=== PATIENT | female | born 1945 | race Caucasian/White ===

== ENCOUNTER → 2017-01-25 | Outpatient (CLI) | payer OTHER ==
[~2017-01-25] MED LIST: CRESTOR5 MG PO; HYDROCODONE-AP1 EAC6 PO; IBUPROFEN 600600 M1 PO
== END ==
LOC: RAD 01:36
DX: Z12.31 Encounter for screening mammogram for malignant neoplasm of breast (principal)

== ENCOUNTER 2018-10-20 18:19 | Emergency (ER) | payer OTHER ==
[~2018-10-20] VITALS: Ht 160 cm; Wt 78.9 kg
[2018-10-20 18:48] LABS: HEMATOCRIT 42.7 % (37.0-47.0); HEMOGLOBIN 14.4 gm/dL (12.0-15.0); LYMPHOCYTES 36.5 % (24.0-44.0); MCHC 33.7 g/dL (28.0-37.0); MCV 88.8 fL (80.0-100.0); PLATELET COUNT 210 thou/uL (150-400); POLYS 50.5 % (36.0-66.0); RBC 4.81 mil/uL (4.20-5.00); RDW 13.6 % (10.5-14.5); WBC 7.8 thou/uL (4.0-11.0)
[2018-10-20 18:50] LABS: URINE BILIRUBIN NEGATIVE (Negative); URINE BLOOD TRACE (Negative); URINE CLARITY CLEAR; URINE COLOR YELLOW; URINE GLUCOSE-RANDOM* NEGATIVE (Negative); URINE KETONES NEGATIVE (Negative); URINE LEUKOCYTES-REFLEX TRACE (Negative); URINE NITRITE-REFLEX NEGATIVE (Negative); URINE PROTEIN (DIPSTICK) NEGATIVE (Negative); URINE SPECIFIC GRAVITY <= 1.005 (1.005-1.035); URINE UROBILINOGEN 0.2 E.U./dl (0.2-1.0)
[2018-10-20 18:56] LABS: ANION GAP 9 mmol/L (7-16); BUN 15 mg/dL (7-18); CALCIUM 9.5 mg/dL (8.5-10.1); CHLORIDE 103 mmol/L (98-107); CO2 26 mmol/L (21-32); CREATININE 0.7 mg/dL (0.6-1.0); GLUCOSE 90 mg/dL (74-106); POTASSIUM 3.8 mmol/L (3.5-5.1); SODIUM 138 mmol/L (136-145)
[2018-10-20 19:04] LABS: TROPONIN-I <0.06 ng/mL (<0.06)
[2018-10-20 20:08] VITALS: BP 164/77
--- NOTE | 2018-10-21 09:33 | EKG ---
[address] [place] [address] ELECTROCARDIOGRAM REPORT Name: AXELCARLOS DELIA [facility] [id number] ������������������ Admission: 10/20/18 ������������������ Attend Phys: Discharge: 10/20/18 ������������������ Date of : 45 Report #: [id number] ����������������������������������������������������������������� [id number] THIS REPORT FOR: //name// [facility] ED Test Date: 2018-10-20 Test Time: 18:52:55 Pat Name: CARLOS REYNA Department: Room: Gender: F Valet: CLINT : 1945 Requested By: Gavino Cruz Order Number: [id number] MD: Alfonso Amaya Measurements Intervals [place] Rate: 56 P: 43 MO: 155 QRS: 32 QRSD: 92 T: 41 QT: 450 QTc: 435 Interpretive Statements Sinus rhythm Probable left atrial enlargement Compared to ECG 03/30/2015 07:40:00 Sinus bradycardia no longer present Electronically Signed On 10-21-2018 9:33:44 CDT by Alfonso Amaya [email or web address] ��������������������������������������������� <ELECTRONICALLY SIGNED> ���������������������������������������� By: Alfonso Amaya MD ��������������������������������������������� 10/21/18 0933 [id number] Alfonso Amaya MD /BRAXTON
== END 2018-10-20 20:09 | disposition home or self-care (01) ==
LOC: ER 18:19
PROVIDERS: Emergency Medicine
DX: R42 Dizziness and giddiness (principal); E78.00 Pure hypercholesterolemia, unspecified; E78.5 Hyperlipidemia, unspecified; E11.9 Type 2 diabetes mellitus without complications; G47.30 Sleep apnea, unspecified; Z96.653 Presence of artificial knee joint, bilateral

== ENCOUNTER → 2019-02-27 | Outpatient (CLI) | payer OTHER ==
[~2019-02-27] MED LIST changes: +AMOXICILLIN 50500 MG PO; +ASPIR 8181 MG PO; +CALCIUM 600 +1 EAC1 PO; +COZAAR 50 MG TA50 MG PO; +CRANBERRY PLUS1 EACH PO; +DETROL LA4 MG PO; +GARLIC1000 MG PO; +GINGER250 MG PO; +OIL OF OREGAN1500 MG PO; +TROSPIUM CHLORI60 MG PO; +[UNRECOGNIZED DRUG - OTHER] PO
== END ==
LOC: RAD 15:26
DX: Z12.31 Encounter for screening mammogram for malignant neoplasm of breast (principal)

== ENCOUNTER → 2019-02-27 | Outpatient (CLI) | payer OTHER ==
[~2019-02-27] VITALS: Ht 160 cm; Wt 83.9 kg
[2019-02-27 14:02] VITALS: BP 158/83
--- NOTE | 2019-02-27 14:37 | NUR ---
Pain Clinic Assessment: 1. History of Osteoarthritis: BLE AND BACK History of Rheumatoid Arthritis: Not Applicable 2. Height: 5 ft. 3 in. 160.0 cm. Weight: 185.0 lb. oz. 83.916 kg. Patient's BMI: 32.8 3. Vital Signs: BP: 158/83 Pulse: 64 Resp: 16 Temp: 02 Sat: 100 ECG Mon: 4. Pain Intensity: 6 5. Fall Risk: Dizziness: N Needs help standing or walking: N Fallen in the last 3 months: N Fall risk comments: 6. Patient on Blood Thinner: None 7. History of Hypertension: Y 8. Opioid Therapy greater than 6 weeks: N Opiate Contract Signed: 9. Risk Assessment Tool Provided: 10. Functional Assessment Tool: 11. Recreational Drug Use: Never Drug Type: Tobacco Use: Never Smoker Tobacco Type: Amount or Packs/day: How Many Years: Alcohol Use: No Frequency: Quant:
--- NOTE | 2019-03-06 16:52 | HPC ---
[facility] [address] [place] [address] PAIN MANAGEMENT CONSULTATION Name: CARLOS REYNA Room #: REG CL MIrma.#: [id number] Admission: 02/27/19 Attend Phys: Damon Gaffney MD Discharge: Date of : 45 Report #: [id number] THIS REPORT FOR: //name// CC: Jigna Gaffney DATE OF SERVICE: 02/27/2019 CHIEF COMPLAINT: Low back pain with radiation in the left leg in the L5 distribution. This is a very pleasant 74-year-old female who I last saw over 18 years ago. She received a series of epidural steroid injections. She ultimately went on to have surgery. I performed additional injections for her 2-3 years after surgery and she has had no need for me since. Beginning in October of this year after moving a desk, she began experiencing radicular symptoms into the left hip. Riding in a car for any amount of time worsens her pain dramatically and she has a trip upcoming in the next 10 days. She has asked for an epidural injection to provide symptomatic relief. She describes her pain as constant, shooting, aching 6-8/10. She just recently had a flu shot. We have recommended that she wait until Sunday to have her epidural injection per our office protocol and recommendations. MEDICATIONS: Roberta root, oregano oil, garlic, cranberry, calcium, aspirin, trospium chloride, losartan, tolterodine, ibuprofen 600 mg, hydrocodone, . ALLERGIES: None listed. PAST MEDICAL HISTORY: Positive for cardiac ablation, cardiac catheterization, appendectomy, lumbar laminectomy, vaginal hysterectomy, and multiple eye surgeries. SOCIAL HISTORY: She is retired. Denies use of tobacco and alcohol. Does not use illegal drugs. She is single, . REVIEW OF SYSTEMS: Completed by the patient. Positive for blurred vision. She had a head injury in 1947. She complains of numbness and tingling into the left leg, frequent urination, nocturia. PHYSICAL EXAMINATION: GENERAL: Pleasant female, 5 feet 3 inches, 185 pounds, BMI of 32.8. VITAL SIGNS: Blood pressure is 158/83, heart rate 64, respirations 16, pain intensity 6/10. She moves independently from sitting to standing, walks without [facility] [address] [place] [address] PAIN MANAGEMENT CONSULTATION Name: CARLOS REYNA Room #: REG [facility].#: [id number] Admission: 02/27/19 Attend Phys: Damon Gaffney MD Discharge: Date of : 45 Report #: [id number] antalgic features to her gait. CHEST: Clear to auscultation. CARDIAC: Rhythm is regular. ABDOMEN: Soft. MUSCULOSKELETAL: Examination of the spine reveals a scar, which was nontender. She has some mild tenderness in the left paramedian region radiating into the left hip. Straight leg raising reproduces symptoms of radiculopathy in the L5-S1 distribution. IMPRESSION: Lumbar radiculopathy likely related to degenerative disk disease, post-laminectomy syndrome. RECOMMENDATIONS: I have recommended epidural injection and will bring her back on Sunday to do that. We will consider transforaminal approach given her previous surgery. Followup visit planned on Sunday. <ELECTRONICALLY SIGNED> By: Damon Gaffney MD 03/06/19 1652 [id number] Damon Gaffney MD /nt
== END ==
LOC: PAIN 06:59
DX: M54.16 Radiculopathy, lumbar region (principal); M96.1 Postlaminectomy syndrome, not elsewhere classified; Z88.8 Allergy status to other drugs, medicaments and biological substances; Z79.899 Other long term (current) drug therapy

== ENCOUNTER → 2019-03-03 | Outpatient (CLI) | payer OTHER ==
[~2019-03-03] VITALS: Ht 160 cm; Wt 87.5 kg
[2019-03-03 08:51] VITALS: BP 185/88
--- NOTE | 2019-03-03 08:57 | NUR ---
Pain Clinic Assessment: 1. History of Osteoarthritis: SPINEE Right Lower Extremity Left Lower Extremity History of Rheumatoid Arthritis: Not Applicable 2. Height: 5 ft. 3 in. 160.0 cm. Weight: 193.0 lb. oz. 87.544 kg. Patient's BMI: 34.2 3. Vital Signs: BP: 185/88 Pulse: 65 Resp: 16 Temp: 02 Sat: 97 ECG Mon: 4. Pain Intensity: 5 5. Fall Risk: Dizziness: N Needs help standing or walking: N Fallen in the last 3 months: N Fall risk comments: 6. Patient on Blood Thinner: None 7. History of Hypertension: Y 8. Opioid Therapy greater than 6 weeks: N Opiate Contract Signed: 9. Risk Assessment Tool Provided: MOD-5 10. Functional Assessment Tool: 11. Recreational Drug Use: Never Drug Type: Tobacco Use: Never Smoker Tobacco Type: Amount or Packs/day: How Many Years: Alcohol Use: No Frequency: Quant:
--- NOTE | 2019-03-06 16:52 | HPC ---
[address] [address] PAIN MANAGEMENT CONSULTATION Name: CARLOS REYNA DELIA Room #: REG CL Jonel.#: [id number] Admission: 03/03/19 Attend Phys: Damon Gaffney MD Discharge: Date of : 45 Report #: [id number] THIS REPORT FOR: //name// CC: PARMINDER Gaffney DATE OF SERVICE: 03/03/2019 REASON FOR VISIT: Followup visit for lumbar epidural steroid injection. SUBJECTIVE: The patient was seen as a new patient consultation on 02/27/2019. We were unable to provide her injection on that date. Preauthorization has been received to go forward with her injection. I reviewed our visit from just 4 days ago and there have been no significant changes. Procedure was explained to her including risks and benefits and she is anxious to proceed today. IMPRESSION: 1. Lumbar radiculopathy, post-laminectomy syndrome. 2. Degenerative disk disease. 3. Pain in the L5-S1 distribution. PROCEDURE: L5-S1 transforaminal epidural injection under fluoroscopic guidance. DESCRIPTION OF PROCEDURE: She was taken to fluoroscopic suite for treatment where she was placed prone, skin prepped with ChloraPrep. Skin was anesthetized over the L5-S1 neural foramen. Using triplanar fluoroscopic views, I advanced needle into the neural foramen. A 1.5 mL of Omnipaque was injected and an excellent epidurogram achieved. This was then followed by 3 mL of 0.5% lidocaine mixed with 80 mg of triamcinolone. She tolerated the procedure well and was observed for 45 minutes and discharged. Followup visit is planned in April. She will be out of the town for the next 2 months. Further injections will depend on her current response. No medications were ordered. <ELECTRONICALLY SIGNED> By: Damon Gaffney MD 03/06/19 1652 [id number] Damon Gaffney MD /nt
== END | disposition home or self-care (01) ==
LOC: PAIN 06:29
DX: M54.5 Low back pain (principal); M51.16 Intervertebral disc disorders with radiculopathy, lumbar region; M96.1 Postlaminectomy syndrome, not elsewhere classified; Z79.899 Other long term (current) drug therapy; Z79.82 Long term (current) use of aspirin; Z98.890 Other specified postprocedural states

== ENCOUNTER → 2020-04-19 | Outpatient (CLI) | payer OTHER | LOC: RAD 08:02 | PROVIDERS: ATTEND Family Medicine | DX: Z12.31 Encounter for screening mammogram for malignant neoplasm of breast (principal) ==